=== PATIENT | male | born 1990 | race Caucasian/White ===

== ENCOUNTER 2017-09-18 14:08 | Emergency (ER) | payer MEDICAID, OTHER ==
[~2017-09-18] VITALS: Ht 165.1 cm; Wt 81.6 kg
[2017-09-18 14:57] VITALS: BP 131/83
== END 2017-09-18 15:22 | disposition home or self-care (01) ==
LOC: ER 14:08
DX: L40.9 Psoriasis, unspecified (principal); F17.210 Nicotine dependence, cigarettes, uncomplicated